=== PATIENT | male | born 1990 | race Two or more races ===

== ENCOUNTER 2020-01-04 12:30 | Emergency (ER) | payer OTHER, SELFPAY ==
[2020-01-04 13:44] VITALS: BP 124/79
== END 2020-01-04 13:44 | disposition home or self-care (01) ==
LOC: ED 12:30
DX: J02.9 Acute pharyngitis, unspecified (principal); Z20.828 Contact with and (suspected) exposure to other viral communicable diseases
CPT/HCPCS: U0003-CS